=== PATIENT | male | born 2000 | race Hispanic/Latino ===

== ENCOUNTER → 2024-06-16 | Day surgery (SDC) | payer OTHER ==
[~2024-06-16] MED LIST: ACETAMINOPHEN 1000 MG/100 ML 100 ML IV ONE; BUPIVACAINE HCL 0.5% INJ 30 ML VIAL INJ ONE; DEXAMETHASONE SOD PHOS INJ 4 MG/ML SDV ONE; FENOFIBRATE145 M1 PO; FLOMAX0.4 MG PO; LISINOPRIL10 MG PO; NEOSTIGMINE 1 MG/ML 10ML VIAL ONE; SIMVASTATIN20 MG PO; VITAMIN D3 COM1 EACH PO
[2024-06-16] MEDS: LACTATED RINGER'S 1,000 ML ONE (12:36)
[2024-06-16] MEDS: CEFAZOLIN SODIUM 2 GM ONE (12:36)
[2024-06-16 13:30] VITALS: TEMP 97.8
[2024-06-16 14:00] VITALS: BP 116/72; PULSE 79; RESP 16; O2SAT 99
== END | disposition home or self-care (01) ==
LOC: OR 10:38
PROVIDERS: ATTEND Podiatrist Foot & Ankle Surgery
DX: L97.519 Non-pressure chronic ulcer of other part of right foot with unspecified severity (principal); M86.171 Other acute osteomyelitis, right ankle and foot; I10 Essential (primary) hypertension; E78.5 Hyperlipidemia, unspecified; E66.01 Morbid (severe) obesity due to excess calories; Q05.9 Spina bifida, unspecified; F17.200 Nicotine dependence, unspecified, uncomplicated; G89.29 Other chronic pain; Z88.1 Allergy status to other antibiotic agents; Z91.040 Latex allergy status; Z01.810 Encounter for preprocedural cardiovascular examination; Z01.818 Encounter for other preprocedural examination; Z79.899 Other long term (current) drug therapy
CPT/HCPCS: 28315; 71046; 93005; J0131; J0690; J2710; J7121; J1100